=== PATIENT | male | born 1950 | race African-American/Black ===

== ENCOUNTER 2017-03-20 11:04 | Emergency (ER) | payer SELFPAY ==
[~2017-03-20] VITALS: Ht 182.9 cm; Wt 92.5 kg
[~2017-03-20 11:04] MED LIST: ANT25 PO; CAT0.1 PO; ZES20 PO
[2017-03-20 11:10] VITALS: Ht 182.9 cm; Wt 92.5 kg
[2017-03-20 14:02] LABS: AMPHETAMINE QUAL UR NONE DETECTED (NEG <=1000)
[2017-03-20 14:07] LABS: BASOPHIL % 0.5 % (0-2); PLATELET COUNT 180 x10^3mcL (130-400); RED CELL DISTRIBUTION WIDTH 13.1 % (11.5-14.5)
[2017-03-20 14:14] LABS: CALCIUM 8.5 mg/dL (8.5-10.1); CARBON DIOXIDE 31.9 mmol/L (21-32); CREATININE SERUM 1.4 mg/dL (0.7-1.3); POTASSIUM SERUM 3.8 mmol/L (3.5-5.1)
[2017-03-20 14:18] LABS: BILIRUBIN TOTAL 0.6 mg/dL (0.20-1.00); TOTAL PROTEIN, SERUM 7.8 g/dL (6.4-8.2)
[2017-03-20 14:27] LABS: FREE T4 1.07 ng/dL (0.76-1.46); FREE THYROXINE INDEX 3.1 ug/dL (1.4-4.5); T4(THYROXINE) 8.5 ug/dL (4.7-13.3)
[2017-03-20 15:40] VITALS: BP 152/82
== END 2017-03-20 15:40 | disposition home or self-care (01) ==
LOC: ED 11:04
PROVIDERS: Emergency Medicine
DX: T50.995A Adverse effect of other drugs, medicaments and biological substances, initial encounter (principal); I10 Essential (primary) hypertension; R53.1 Weakness; R51 Headache; Y92.89 Other specified places as the place of occurrence of the external cause
CPT/HCPCS: 36415; 84439; Q0092